=== PATIENT | male | born 1940 | race Caucasian/White ===

== ENCOUNTER → 2018-11-26 | Outpatient (CLI) | payer MEDICARE, BC ==
[2018-11-26 15:58] LABS: HCT 46.3 % (39.0-53.0); HGB 15.1 gm/dL (13.0-17.5); MCH 28.3 pg (25.0-35.0); MCHC 32.6 g/dL (31.0-37.0); MCV 86.7 fL (80.0-100.0); Mean Platelet Volume 7.2; Platelet Count 251 k/uL (150-450); RBC 5.34 m/uL (4.30-5.90); RDW 14.6 % (11.5-15.5); WBC 7.2 k/uL (3.8-10.6)
[2018-11-26 16:07] LABS: Prothrombin Time 10.9 sec (9.0-12.0)
[2018-11-26 16:11] LABS: Appearance,Urine Clear (Clear); Bilirubin,Urine Negative (Negative); Blood,Urine Negative (Negative); Color,Urine Yellow; Glucose,Urine (UA) Negative (Negative); Ketones,Urine Negative (Negative); Leukocyte Esterase,Urine Negative (Negative); Nitrite,Urine Negative (Negative); Protein,Urine Trace (Negative); Specific Gravity,Urine 1.029 (1.001-1.035); Urobilinogen,Urine <2.0 mg/dL (<2.0)
[2018-11-26 16:19] LABS: Potassium 4.3 mmol/L (3.5-5.1)
== END | disposition home or self-care (01) ==
LOC: LABPAT 15:26
PROVIDERS: ATTEND Orthopaedic Surgery
DX: Z01.812 Encounter for preprocedural laboratory examination (principal); M16.11 Unilateral primary osteoarthritis, right hip
CPT/HCPCS: 80051; 81003; 82565; 84520; 85027; 85610; 85730; 87070

== ENCOUNTER 2019-03-17 12:20 | Inpatient (IN) | payer MEDICARE, BC ==
[2019-04-30 09:01] VITALS: BMI 26.4
[2019-05-05] MEDS ORDERED: MELOXICAM 7.5 MG TAB PO ONE (05:00)
[2019-05-05] MEDS ORDERED: ACETAMINOPHEN TAB 500 MG TAB PO ONE (05:00)
[2019-05-05] MEDS ORDERED: GABAPENTIN 300 MG CAP PO ONE (05:00)
[2019-05-05] MEDS ORDERED: TRANEXAMIC ACID 1,000 MG in SODIUM CHLORIDE 0.9% 100 ML IVPB ONE ×4 (05:00)
[2019-05-05] MEDS ORDERED: ROPIVACAINE 246.25 MG, EPINEPHrine 0.5 MG, KETOROLAC 30 MG, cloNIDine HCL/PF 80 MCG, WA... MISCELLANE ONE ×5 (06:00)
[2019-05-05] MEDS ORDERED: MIDAZOLAM 2 MG/2 ML VIAL IV PRN (06:05)
[2019-05-05] MEDS ORDERED: HYDROmorphone 0.5 MG/0.5 ML SYRINGE IVP PRN ×4 (06:05→12:06)
[2019-05-05] MEDS ORDERED: DEXAMETHASONE SOD PHOSPHATE 10 MG/ML 1 ML VIAL IV ONE (06:05)
[2019-05-05] MEDS ORDERED: ONDANSETRON 4 MG/2 ML VIAL IVP ONE (06:05)
[2019-05-05] MEDS ORDERED: LIDOCAINE 1% 20 ML VIAL (10MG/ML) FOR IV START INTRADERMA PRN (06:05)
[2019-05-05] MEDS ORDERED: SCOPOLAMINE 1.5MG/72HR PATCH TRANSDERM ONE (06:05)
[2019-05-05] MEDS: LACTATED RINGERS 1,000 ML IV SCH (11:15)
[2019-05-05] MEDS ORDERED: PROPOFOL 10 MG/ML 20 ML VIAL IV ONE (12:01)
[2019-05-05] MEDS ORDERED: fentaNYL (PF) 50 MCG/ML 2 ML AMP ONE (12:01)
[2019-05-05] MEDS ORDERED: SODIUM CHLORIDE 0.9% IRRIG 1,000 ML BTL IRRIGATION ONE (12:01)
[2019-05-05] MEDS ORDERED: HEPARIN SODIUM,PORCINE 10,000 UNIT/ML 1 ML VIAL ONE (12:01)
[2019-05-05] MEDS ORDERED: PHENYLEPHRINE-0.9% NACL SYG 1 MG/10 ML SYRINGE ONE (12:01)
[2019-05-05] MEDS ORDERED: SODIUM CHLORIDE 0.9% 100 ML BAG ONE (12:01)
[2019-05-05] MEDS ORDERED: TRANEXAMIC ACID 1,000 MG/10 ML VIAL ONE (12:01)
[2019-05-05] MEDS ORDERED: MIDAZOLAM 2 MG/2 ML VIAL ONE (12:01)
[2019-05-05] MEDS ORDERED: NALOXONE 0.4 MG/ML 1 ML VIAL IV PRN (12:06)
[2019-05-05] MEDS ORDERED: ONDANSETRON 4 MG/2 ML VIAL IVP PRN (12:06)
[2019-05-05] MEDS ORDERED: HYDROcodone/APAP 5-325MG 1 EACH TAB PO PRN (12:06)
[2019-05-05] MEDS ORDERED: DIAZEPAM 5 MG TAB PO PRN (12:06)
[2019-05-05] MEDS ORDERED: MAGNESIUM HYDROXIDE 2,400 MG/10 ML CUP PO PRN (12:06)
[2019-05-05] MEDS ORDERED: ceFAZolin 3,000 MG in SODIUM CHLORIDE 0.9% IRRIGATIO 3,000 ML IRRIGATION ONE (12:07)
[2019-05-05] MEDS ORDERED: LACTATED RINGERS 1,000 ML IV ONE (13:02)
--- NOTE | 2019-05-05 13:44 | P.OP ---
Date of Procedure: 05/05/19 Preoperative Diagnosis: Polyethylene wear right total hip arthroplasty Postoperative Diagnosis: Polyethylene wear right total hip arthroplasty Procedure(s) Performed: Revision right total hip arthroplasty Implants: Liza Omnifit Crossfire 10 degree insert, 32 mm Liza Biolox Delta C-Taper Femoral Head, 32 mm +0 The articulation is ceramic on polyethylene. Anesthesia: spinal Surgeon: Koby Duron Gold Miner Blasting #1: Darlene Malagon Estimated Blood Loss (ml): 900 (376 mL returned with Cell Saver) Pathology: other (Cultures 2) Condition: stable Disposition: PACU Indications for Procedure: This is an 79-year-old gentleman has had a prior right total hip arthroplasty performed at another institution. He subsequently developed polyethylene wear and pain in his right total hip arthroplasty. After discussing the surgical and nonsurgical treatment options with him at length, he wishes to proceed with a revision of his right total hip arthroplasty with polyethylene exchange. Informed consent was obtained. Operative Findings: Operative findings are consistent with polyethylene wear of the right total hip arthroplasty. Description of Procedure: Patient was seen and evaluated in the preoperative area, consent was reviewed, and the surgical site was marked with a skin marker. Patient was then brought to the operating room and given prophylactic antibiotics intravenously. 1 g of Tranexamic acid was also given. A spinal anesthetic was administered by the anesthesia department. The patient was then placed on the operative table and placed in the lateral decubitus position with the bony prominences well-padded. The hip area was then prepped and draped in usual sterile fashion. A universal timeout was then performed, which confirmed the patient's name, surgical site, ALLERGIES, and procedure being performed. Next the incision site was located in the lateral aspect of the hip, centered at the tip of the greater trochanter.. The skin and subcutaneous tissues were sharply incised. A portion of his prior incision was utilized, with the scar being excised. Incision was carefully dissected down to the fascia. This fascia was then incised in line with the incision. Next, a Charnley retractor was then placed in the abductors were identified. The anterior one third of the abductors was released off the trochanter and one large sleeve. The anterior hip capsule was then exposed. The capsule was then opened. The proximal femur was then visualized. The hip was then gently dislocated. The femoral head was then removed from the trunnion of the femoral component. The femoral stem was then inspected, and found to be well fixed. Attention was then turned to the acetabulum. The acetabulum was exposed, and the scar tissue was excised sharply with a knife. After the acetabulum was exposed, the polyethylene component was found to be grossly loose. This was then easily removed with a hemostat. The acetabular component was then inspected and found to be well fixed. After adequate debridement of scar tissue, trial liner was then placed. Trial femoral head was then placed and hip was reduced. The leg lengths were checked and found to be equal. Hip was then taken through full range of motion, was stable throughout. Next, the hip was gently dislocated, and the trials were removed. Acetabulum was then reexposed. The appropriate acetabular liner was then opened and the final insert was impacted with the elevated rim located in the anterior superior quadrant. component locking was confirmed. The trunnion was then cleaned and dried and the femoral head was impacted on the trunnion. Hip was then reduced and the hip was then taken through range of motion and found to be stable throughout. Leg lengths were also checked, and found to be equal. The hip was then copiously irrigated with antibiotic solution with pulsatile lavage. The hip was then irrigated with Irrisept solution. The soft tissues were then injected with ropivacaine solution. A second dose of 1 g of Tranexamic acid was given. The abductors were then repaired with #5 Ethibond suture with drill holes to the bone. The fascia was closed with #2 strata fix suture. The subcutaneous tissue was closed with 3-0 Vicryl. The subcuticular tissue was closed with 30 strata fix suture. The skin was then closed with Dermabond tape. The patient was then transferred to the recovery room in stable condition. The Asst. SHERIDAN Mcdermott was required due to the complexity of surgery, and the need for skilled surgical supervisor for positioning, draping, exposure, retraction, and closure of the wound.and closure of the wound.
--- NOTE | 2019-05-05 14:39 | XR ---
EXAMINATION TYPE: XR Hip Limited RT DATE OF EXAM: 05/05/2019 CLINICAL HISTORY: Right hip pain and osteoarthritis. TECHNIQUE: Single AP portable view of right hip is obtained immediately postoperatively. COMPARISON: None. FINDINGS: Metallic hardware from total right hip arthroplasty is seen and appears satisfactory in ali gnment and position. There is evidence of recent surgery with subcutaneous gas noted laterally. IMPRESSION: Metallic hardware from right hip arthroplasty is satisfactory in position.
[2019-05-05] MEDS: SODIUM CHLORIDE 0.9% 1,000 ML IV SCH ×2 (15:20→15:49)
[2019-05-05] MEDS: HYDROcodone/APAP 5-325MG 1 EACH TAB PO PRN ×2 (17:34→23:25)
--- NOTE | 2019-05-05 18:35 | P.CONS ---
History of Present Illness - Reason for Consult Consult date: 05/05/19 Medical management. Requesting physician: Koby Duron - Chief Complaint Right hip pain post surgery. - History of Present Illness This 79-year-old male with past medical history significant for CAD status post PTCA and stent, status post CABG 3 vessels, PUD/GERD, DJD, chronic atrial fibrillation, diverticulosis, vitamin D and B12 deficiencies, hyperglycemia, peripheral neuropathy, basal cell carcinoma left forehead status post removal, emphysema on chest x-ray who had bilateral hip replacement in the past and right sided being about 20 years ago. Patient started having issues of pain with right hip replacement site and was evaluated by Dr. Duron and offered right hip revision which patient accepted. Patient underwent elective right hip revision today and sound hospitalist group was consulted postoperatively for medical management. Patient stated that he is very impressed with the spinal anesthesia and its recovery after the surgery and now other than mild to moderate right pain he is feeling wonderful. Patient denied chest pain, palpitation, headache, dizziness, diaphoresis, cough, sputum, fever, chills, nausea, vomiting, diarrhea and denies rest of the review system. Review of Systems 12 point review of system was essentially negative other than mentioned in HPI. Past Medical History Past Medical History: Atrial Fibrillation, Coronary Artery Disease (CAD), Cancer (Basal cell cancer of the forehead, removed.), GERD/Reflux, Neurologic Disorder (Bilateral lower extremity neuropathy.), Osteoarthritis (OA) Additional Past Medical History / Comment(s): hx. hiatal hernia, SOB w/exertion, supposed to have hip revision in November, ended up having CABG instead History of Any Multi-Drug Resistant Organisms: None Reported Past Surgical History: Cholecystectomy (1989.), Coronary Bypass/CABG, Heart Catheterization With Stent, Joint Replacement (Bilateral hip arthroplasties.) Additional Past Surgical History / Comment(s): kimberly hip replacement, triple bypass November 2018 Past Anesthesia/Blood Transfusion Reactions: Previous Problems w/ Anesthesia Additional Past Anesthesia/Blood Transfusion Reaction / Comm: some issues in [place] after original hip replacement-had some chest pain next day after surg. that thinks had something to do with anesthesia per pt. Date of Last Stent Placement:: 2012 Past Psychological History: No Psychological Hx Reported Smoking Status: Never smoker Past Alcohol Use History: None Reported Past Drug Use History: None Reported - Past Family History Brother(s) Family Medical History: Cancer Medications and Allergies Home Medications Medication Instructions Recorded Confirmed Type Aspirin [Adult Low Dose Aspirin EC] 81 mg PO DAILY 12/02/18 04/30/19 History Cholecalciferol (Vitamin D3) 1,000 unit PO DAILY 12/02/18 04/30/19 History [Vitamin D3] Cyanocobalamin (Vitamin B-12) 1,000 mcg PO DAILY 12/02/18 04/30/19 History [Vitamin B-12] Dronedarone [Multaq] 400 mg PO AC-BID 12/02/18 04/30/19 History Ubidecarenone [Co Q-10] 100 mg PO DAILY 12/02/18 04/30/19 History Famotidine [Pepcid] 40 mg PO DAILY 04/30/19 04/30/19 History Allergies Allergy/AdvReac Type Severity Reaction Status Date / Time No Known Allergies Allergy Verified 05/05/19 10:53 Physical Exam Vitals: Vital Signs Temp Pulse Resp BP BP Pulse Ox 05/05/19 16:53 70 116/65 05/05/19 16:37 72 130/78 05/05/19 16:21 73 131/73 05/05/19 16:07 69 133/75 05/05/19 15:51 69 156/82 05/05/19 15:36 65 145/70 05/05/19 15:22 97.7 F 69 16 138/77 96 05/05/19 14:43 68 18 128/68 96 05/05/19 14:28 65 16 134/64 98 05/05/19 14:13 73 16 134/77 97 05/05/19 13:58 82 17 134/77 97 05/05/19 11:05 97.6 F 76 16 127/70 98 Intake and Output 05/05/19 05/05/19 05/05/19 06:59 14:59 22:59 Intake Total 1751 180 Output Total 900 Balance 851 180 Intake: IV 1751 Oral 180 Output: Estimated Blood Loss 900 Other: Weight 86.5 kg - Constitutional General appearance: cooperative, no acute distress - EENT Eyes: EOMI, normal appearance ENT: hearing grossly normal, NA/AT - Neck Neck: no lymphadenopathy, normal ROM, no rigidity, no stridor, no thyromegaly - Respiratory Respiratory: bilateral: CTA, negative: diminished, dullness, rales, rhonchi, wheezing - Cardiovascular Rhythm: irregularly irregular Heart sounds: abnormal: S1 (Variable.), S2 (Variable.) Abnormal Heart Sounds: no systolic murmur, no diastolic murmur, no S3 Gallop, no S4 Gallop - Gastrointestinal General gastrointestinal: no distended, normal bowel sounds, no rigid, soft, no tenderness - Neurologic Neurologic: CNII-XII intact (No focal neuro deficits noted.) - Psychiatric Psychiatric: A&O x's 3, appropriate affect, intact judgment & insight Results Results: Hemoglobin 14, WBC 7.2, hematocrit 42.9, MCV 82.6, PT 10.9 and INR 1.0, sodium 142, potassium 4.1, chloride 110, bicarb 22, anion gap 10, BUN 23 and creatinine 1.42. Patient urine was negative for infection. These are the preoperative lab testing reports. Comments: Postoperative right hip x-ray reported as metallic hardware from right hip arthroplasty is satisfactory in position. Assessment and Plan (1) Atrial fibrillation Narrative/Plan: Controlled heart rate. Current Visit: Yes Status: Chronic Priority: Medium Code(s): I48.91 - UNSPECIFIED ATRIAL FIBRILLATION SNOMED Code(s): 37188191 (2) GERD (gastroesophageal reflux disease) Narrative/Plan: Stable on H2-Chad. Current Visit: Yes Status: Chronic Priority: Medium Code(s): K21.9 - GASTRO-ESOPHAGEAL REFLUX DISEASE WITHOUT ESOPHAGITIS SNOMED Code(s): 915701671 (3) CAD (coronary artery disease), autologous vein bypass graft Narrative/Plan: Currently stable post recent CABG. Current Visit: Yes Status: Chronic Priority: Medium Code(s): I25.810 - ATHEROSCLEROSIS OF CABG W/O ANGINA PECTORIS SNOMED Code(s): 876367012 (4) Basal cell carcinoma (BCC) in situ of skin Current Visit: Yes Status: Chronic Priority: Low Code(s): D04.9 - CARCINOMA IN SITU OF SKIN, UNSPECIFIED SNOMED Code(s): 79381567414688 (5) DJD (degenerative joint disease) Current Visit: Yes Status: Chronic Priority: High Code(s): M19.90 - UNSPECIFIED OSTEOARTHRITIS, UNSPECIFIED SITE SNOMED Code(s): 487143065 (6) Peripheral neuropathy Current Visit: Yes Status: Chronic Priority: Medium Code(s): G62.9 - POLYNEUROPATHY, UNSPECIFIED SNOMED Code(s): 169258732 Plan: Patient was seen and evaluated and his home medication were reviewed and will be continued. Patient was also present and per patient's verbal consent she was updated about patient's current condition and all questions were answered. Patient is waiting for his therapy to be started depending upon patient's respo nse to the therapy disposition will be recommended. Pain management per orthopedic service. Thanks Dr. Duron for allowing sound physician group in taking part of the medical management of your patient, we will continue to follow and monitor while he is in the hospital.
[2019-05-05] MEDS: DRONEDARONE 400 MG TAB PO SCH (20:32)
[2019-05-05] MEDS: ASPIRIN 325 MG TAB PO SCH (20:32)
[2019-05-05] MEDS ORDERED: SENNOSIDES-DOCUSATE SODIUM 1 EACH TAB PO SCH (21:00)
[2019-05-06] MEDS: LACTATED RINGERS 1,000 ML IV SCH (03:56)
[2019-05-06] MEDS: HYDROcodone/APAP 5-325MG 1 EACH TAB PO PRN ×2 (05:30→10:43)
[2019-05-06] MEDS: ASPIRIN 325 MG TAB PO SCH (07:06)
[2019-05-06 08:01] VITALS: BP 131/72; PULSE 75; RESP 16; TEMP 97.9
[2019-05-06] MEDS: DRONEDARONE 400 MG TAB PO SCH (08:10)
--- NOTE | 2019-05-06 08:33 | P.DS ---
Providers Date of admission: 05/05/19 10:21 Expected date of discharge: 05/06/19 Attending physician: Koby Duron Consults: 05/05/19 12:06 Consult Physician Routine Consulting Provider: Vonnie Ruff Consult Reason/Comments: medical management Do you want consulting provider notified?: Yes Primary care physician: Stated None - Discharge Diagnosis(es) (1) S/P revision of total hip Current Visit: Yes Status: Acute Hospital Course: This is a 79-year-old male who developed polyethylene wear after previous right total hip arthroplasty. The patient presents for evaluation. After discussion and consideration patient elects to proceed with revision right total hip arthroplasty. The patient is seen preoperatively by Dr. Duron and medically cleared for surgery by their primary care physician. Patient is admitted to [facility] on 05/05/2019 for revision right total hip arthroplasty. The procedures performed without complication or sequelae. The patient is doing well postoperatively. Labs and vital signs are stable on day of discharge. On day of discharge patient's hip incision is healing well. There is minimal erythema. There is no drainage noted at this time. There is minimal soft tissue swelling to the hip and thigh. Patient has full foot and ankle motion without difficulty or pain. Calf is soft and nontender to palpation. Neurovascular status to the right lower extremity is intact. Patient is discharged home in good condition. Opioid start talking form is reviewed and signed at patient bedside. Please see med rec for accurate list of home medications. Plan - Discharge Summary Discharge Rx Participant: Yes New Discharge Prescriptions: New Aspirin 325 mg PO BID #60 tab HYDROcodone/APAP 5-325MG [[place] 5-325] 1 - 2 tab PO Q6HR PRN #30 tab PRN Reason: Pain Sennosides [Senokot] 1 tab PO BID #60 tablet No Action Dronedarone [Multaq] 400 mg PO AC-BID Aspirin [Adult Low Dose Aspirin EC] 81 mg PO DAILY Ubidecarenone [Co Q-10] 100 mg PO DAILY Cholecalciferol (Vitamin D3) [Vitamin D3] 1,000 unit PO DAILY Cyanocobalamin (Vitamin B-12) [Vitamin B-12] 1,000 mcg PO DAILY Famotidine [Pepcid] 40 mg PO DAILY Discharge Medication List Aspirin [Adult Low Dose Aspirin EC] 81 mg PO DAILY 12/02/18 [History] Cholecalciferol (Vitamin D3) [Vitamin D3] 1,000 unit PO DAILY 12/02/18 [History] Cyanocobalamin (Vitamin B-12) [Vitamin B-12] 1,000 mcg PO DAILY 12/02/18 [History] Dronedarone [Multaq] 400 mg PO AC-BID 12/02/18 [History] Ubidecarenone [Co Q-10] 100 mg PO DAILY 12/02/18 [History] Famotidine [Pepcid] 40 mg PO DAILY 04/30/19 [History] Aspirin 325 mg PO BID #60 tab 05/06/19 [Rx] HYDROcodone/APAP 5-325MG [[place] 5-325] 1 - 2 tab PO Q6HR PRN #30 tab 05/06/19 [Rx] Sennosides [Senokot] 1 tab PO BID #60 tablet 05/06/19 [Rx] Follow up Appointment(s)/Referral(s): Koby Duron DO [Doctor of Osteopathic Medicine] - 2 Weeks Patient Instructions/Handouts: Pain Management After Surgery (DC), Revision Total Joint Arthroplasty (DC) Activity/Diet/Wound Care/Special Instructions: Weightbearing as tolerated with walker. Leave dressing intact. Dressing may be removed by home care nurse or by patient in 10 days. May shower with dressing on. Continue hip dislocation precautions. Continue use of abductor pillow for 6 weeks while sleeping. Recommend use of compression stockings daily for at least 2 weeks during the day to help prevent swelling and blood clots. May remove at night before sleeping. Please follow-up with [facility] in 2 weeks and call with any questions or concerns, . Discharge Disposition: HOME WITH HOME HEALTH SERVICES
[2019-05-06 08:48] LABS: Basophils % (A) 0 %; Eosinophils % (A) 0 %; HCT 37.8 % (39.0-53.0); HGB 12.4 gm/dL (13.0-17.5); Hypochromasia Slight; Lymphocytes # (A) 1.7 k/uL (1.0-4.8); Lymphocytes % (A) 14 %; MCH 27.3 pg (25.0-35.0); MCHC 32.8 g/dL (31.0-37.0); MCV 83.1 fL (80.0-100.0); Mean Platelet Volume 6.2; Monocytes # (A) 0.9 k/uL (0-1.0); Monocytes % (A) 8 %; Neutrophils # (A) 9.4 k/uL (1.3-7.7); Neutrophils % (A) 76 %; Platelet Count 241 k/uL (150-450); RBC 4.55 m/uL (4.30-5.90); RDW 15.4 % (11.5-15.5); WBC 12.3 k/uL (3.8-10.6)
[2019-05-06] MEDS ORDERED: NON FORMULARY DRUG (Aspirin [Adult Low Dose Aspirin Ec] 81 MG) PO SCH (09:00)
[2019-05-06] MEDS ORDERED: NON FORMULARY DRUG (Ubidecarenone [Co Q-10] 100 MG) PO SCH (09:00)
[2019-05-06] MEDS ORDERED: FAMOTIDINE 20 MG TAB PO SCH (09:00)
[2019-05-06] MEDS ORDERED: CHOLECALCIFEROL 1,000 UNIT TAB PO SCH (09:00)
[2019-05-06] MEDS ORDERED: CYANOCOBALAMIN 500 MCG TAB PO SCH (09:00)
[2019-05-06] MEDS ORDERED: MELOXICAM 7.5 MG TAB PO SCH (09:00)
--- NOTE | 2019-05-06 10:00 | P.PN ---
Subjective Progress Note Date: 05/06/19 Patient reports that he is feeling much better today he is walking better with the help of walker and his pain is well controlled with current medications. Patient stated that he is ready to be discharged home but he would require having home physical therapy as he may not be able to come 3 times a week to the facility for his rehab. Patient denies chest pain, palpitation, headache, dizziness, lightheadedness and denies rest of review of system. Objective - Vital Signs Vital signs: Vital Signs Temp 97.9 F 05/06/19 07:00 Pulse 75 05/06/19 07:00 Resp 16 05/06/19 07:00 BP 131/72 05/06/19 07:00 Pulse Ox 95 05/06/19 07:00 Intake & Output 05/05/19 05/06/19 05/06/19 18:59 06:59 18:59 Intake Total 1931 Output Total 900 Balance 1031 Weight 86.5 kg Intake: IV 1751 Oral 180 Output: Estimated Blood Loss 900 Other: Voiding Method Toilet Toilet # Voids 1 - Constitutional General appearance: Present: cooperative, no acute distress - EENT Eyes: Present: EOMI, normal appearance ENT: Present: hearing grossly normal, NA/AT - Neck Neck: Present: normal ROM. Absent: lymphadenopathy, rigidity, stridor, thyromegaly - Respiratory Respiratory: bilateral: CTA, negative: diminished, dullness, rales, rhonchi, wheezing - Cardiovascular Rhythm: irregularly irregular Heart sounds: abnormal: S1 (Variable.), S2 (Variable.) Abnormal Heart Sounds: Absent: systolic murmur, diastolic murmur, S3 Gallop, S4 Gallop - Gastrointestinal General gastrointestinal: Present: normal bowel sounds, soft. Absent: distended, rigid, tenderness - Neurologic Neurologic: Present: CNII-XII intact. Absent: focal deficits - Psychiatric Psychiatric: Present: A&O x's 3, appropriate affect, intact judgment & insight - Allied health notes Allied health notes reviewed: nursing - Labs CBC & Chem 7: 05/06/19 07:26 Labs: Abnormal Lab Results - Last 24 Hours (Table) 05/06/19 Range/Units 07:26 WBC 12.3 H (3.8-10.6) k/uL Hgb 12.4 L (13.0-17.5) gm/dL Hct 37.8 L (39.0-53.0) % Neutrophils # 9.4 H (1.3-7.7) k/uL Microbiology - Last 24 Hours (Table) 05/05/19 12:46 Gram Stain - Preliminary Hip - Right Wound Culture - Preliminary 05/05/19 12:46 Gram Stain - Preliminary Hip - Right Wound Culture - Preliminary 05/05/19 12:46 Anaerobic Culture - Preliminary Hip - Right 05/05/19 12:46 Anaerobic Culture - Preliminary Hip - Right Assessment and Plan (1) Atrial fibrillation Current Visit: Yes Status: Chronic Priority: Medium Code(s): I48.91 - UNSPECIFIED ATRIAL FIBRILLATION SNOMED Code(s): 50029527 (2) GERD (gastroesophageal reflux disease) Current Visit: Yes Status: Chronic Priority: Medium Code(s): K21.9 - GASTRO-ESOPHAGEAL REFLUX DISEASE WITHOUT ESOPHAGITIS SNOMED Code(s): 136610983 (3) CAD (coronary artery disease), autologous vein bypass graft Current Visit: Yes Status: Chronic Priority: Medium Code(s): I25.810 - ATHEROSCLEROSIS OF CABG W/O ANGINA PECTORIS SNOMED Code(s): 934196249 (4) Basal cell carcinoma (BCC) in situ of skin Current Visit: Yes Status: Chronic Priority: Low Code(s): D04.9 - C ARCINOMA IN SITU OF SKIN, UNSPECIFIED SNOMED Code(s): 69639769558930 (5) DJD (degenerative joint disease) Current Visit: Yes Status: Chronic Priority: High Code(s): M19.90 - UNSPECIFIED OSTEOARTHRITIS, UNSPECIFIED SITE SNOMED Code(s): 248280120 (6) Peripheral neuropathy Current Visit: Yes Status: Chronic Priority: Medium Code(s): G62.9 - POLYNEUROPATHY, UNSPECIFIED SNOMED Code(s): 297469781 Plan: Patient was seen and evaluated and is doing well after surgery and patient is being discharged with home therapy and home care. Patient was also present in the room and she was also updated per patient's verbal consent and all questions were answered. Pain management per orthopedic service, I will give Senokot-S 2 tablets at bedtime to control for his constipation which he can develop pain medications. Thanks Dr. Duron for allowing [facility] physician group in taking part of the medical management of your patient, we will sign off today as he is being discharged home.
--- NOTE | 2019-05-08 02:16 | CDI ---
Documentation Clarification Form Date: 05/08/19 From: [employer] Phone: If you have a question about this query, please contact Faby Wagner, Business Asst at [phone] between 8am and 5pm. Admit Date: 05/05/19 Discharge Date: 05/06/19 Patient Name: Kody Rodriguez Visit Number: [id number] ATTENTION: The Clinical Documentation Specialists (CDI) and [facility] Coding Staff appreciate your assistance in clarifying documentation. Please respond to the clarification below the line at the bottom and electronically sign. The CDI & [facility] Coding staff will review the response and follow-up if needed. Please note: Queries are made part of the Legal Health Record. If you have any questions, please contact the author of this message via ITS. Dear Koby Luna, This is an 79-year-old gentleman has had a prior right total hip arthroplasty performed at another institution.He subsequently developed polyethylene wear and pain in his right total hip arthroplasty. History/Risk Factors:Chronic atrial fibrillation, Basal ell carcinoma,polyneuropathy. Lab findings: Pre operative Hgb 14, hematocrit 42.9 Post-Operative :HCT(%) 37.8L HGB(gm/dL)12.4L Estimated Blood loss: 900ml Treatment: 900 (376 mL returned with Cell Saver) In your professional opinion, can you please clarify the diagnosis? Anemia due to acute blood loss Other, please specify Unable to determine Acute Blood Loss MTDD
== END 2019-05-06 11:06 | disposition home health service (06) | DRG 467 ==
LOC: EDSTATUS 05-05 09:15 → 2ORMAIN 05-05 10:21 → 4SSUR 05-05 14:50
PROVIDERS: ADMIT Orthopaedic Surgery; ATTEND Orthopaedic Surgery
PROC: 30233N1 Transfusion of Nonautologous Red Blood Cells into Peripheral Vein, Percutaneous Approach (ICD-10-PCS; principal; 2019-05-05 11:25)
PROC: 0SPR0JZ Removal of Synthetic Substitute from Right Hip Joint, Femoral Surface, Open Approach (ICD-10-PCS; principal; 2019-05-05 11:25)
PROC: 0SRR03Z Replacement of Right Hip Joint, Femoral Surface with Ceramic Synthetic Substitute, Open Approach (ICD-10-PCS; principal; 2019-05-05 11:25)
PROC: 0SP909Z Removal of Liner from Right Hip Joint, Open Approach (ICD-10-PCS; principal; 2019-05-05 11:25)
PROC: 0SUA09Z Supplement Right Hip Joint, Acetabular Surface with Liner, Open Approach (ICD-10-PCS; principal; 2019-05-05 11:25)
DX: T84.060A Wear of articular bearing surface of internal prosthetic right hip joint, initial encounter (principal); I48.20 Chronic atrial fibrillation, unspecified; D62 Acute posthemorrhagic anemia; K21.9 Gastro-esophageal reflux disease without esophagitis; I25.10 Atherosclerotic heart disease of native coronary artery without angina pectoris; G62.9 Polyneuropathy, unspecified; J43.9 Emphysema, unspecified; Z96.642 Presence of left artificial hip joint; F17.200 Nicotine dependence, unspecified, uncomplicated; E53.8 Deficiency of other specified B group vitamins; E55.9 Vitamin D deficiency, unspecified; K59.09 Other constipation; E78.49 Other hyperlipidemia; N18.3 Chronic kidney disease, stage 3 (moderate); I12.9 Hypertensive chronic kidney disease with stage 1 through stage 4 chronic kidney disease, or unspecified chronic kidney disease; Z95.5 Presence of coronary angioplasty implant and graft; Z79.82 Long term (current) use of aspirin; Z90.49 Acquired absence of other specified parts of digestive tract; Z95.1 Presence of aortocoronary bypass graft; Z80.9 Family history of malignant neoplasm, unspecified; Z87.11 Personal history of peptic ulcer disease; Z97.3 Presence of spectacles and contact lenses; Z87.19 Personal history of other diseases of the digestive system; Z98.890 Other specified postprocedural states
CPT/HCPCS: 73501; 85025; 86850; 86891; 86900; 86901; 87070; 87075; 87205

== ENCOUNTER → 2019-04-23 | Outpatient (CLI) | payer MEDICARE, BC ==
[2019-04-23 14:36] LABS: Appearance,Urine Clear (Clear); Bilirubin,Urine Negative (Negative); Blood,Urine Negative (Negative); Color,Urine Yellow; Glucose,Urine (UA) Negative (Negative); HCT 42.9 % (39.0-53.0); Ketones,Urine Negative (Negative); Leukocyte Esterase,Urine Negative (Negative); MCH 26.9 pg (25.0-35.0); MCHC 32.6 g/dL (31.0-37.0); MCV 82.6 fL (80.0-100.0); Mean Platelet Volume 5.9; Nitrite,Urine Negative (Negative); PH, Urine 5.5 (5.0-8.0); Platelet Count 274 k/uL (150-450); Protein,Urine Trace (Negative); RBC 5.19 m/uL (4.30-5.90); RDW 15.2 % (11.5-15.5); Specific Gravity,Urine 1.027 (1.001-1.035); Urobilinogen,Urine <2.0 mg/dL (<2.0); WBC 7.2 k/uL (3.8-10.6)
[2019-04-23 14:44] LABS: Partial Thromboplastin Time 25.1 sec (22.0-30.0); Prothrombin Time 10.9 sec (9.0-12.0)
[2019-04-23 14:45] LABS: Albumin 4.2 g/dL (3.5-5.0); Calcium 9.2 mg/dL (8.4-10.2); Potassium 4.1 mmol/L (3.5-5.1); Total Bilirubin 0.4 mg/dL (0.2-1.3); Total Protein 7.3 g/dL (6.3-8.2)
== END | disposition home or self-care (01) ==
LOC: LABPAT 13:59
PROVIDERS: ATTEND Orthopaedic Surgery
DX: Z01.812 Encounter for preprocedural laboratory examination (principal); Z01.818 Encounter for other preprocedural examination; M16.11 Unilateral primary osteoarthritis, right hip
CPT/HCPCS: 80053; 81003; 85027; 85610; 85730; 87070

== ENCOUNTER 2019-06-12 13:30 | Emergency (ER) | payer MEDICARE, BC ==
[2019-06-12 13:46] VITALS: TEMP 98.1
[2019-06-12 13:46] LABS: Glucose,Whole Blood 105 mg/dL (75-99)
[2019-06-12] MEDS ORDERED: HYDROmorphone 1 MG/ML 1 ML SYRINGE IVP STA (14:05)
--- NOTE | 2019-06-12 14:08 | ED ---
General Adult HPI - General Chief complaint: Extremity Injury, Lower Stated complaint: Hip dislocation Time Seen by Provider: 06/12/19 13:49 Source: patient, family, EMS, RN notes reviewed Mode of arrival: EMS Limitations: no limitations - History of Present Illness Initial comments: Patient is a pleasant 79-year-old male presenting to the emergency Department with complaints of right hip discomfort. Onset of symptoms was just prior to arrival. Patient was sitting down and felt a sudden pop of his right hip. Patient did have similar symptoms 10 days ago associated with hip dislocation. Patient did have surgery done just a month ago which was a revision of right hip. Patient denies any other area of injury or concern. Patient states discomfort is 5/10 but does increase with movement. - Related Data Home Medications Medication Instructions Recorded Confirmed Aspirin [Adult Low Dose Aspirin EC] 81 mg PO DAILY 12/02/18 04/30/19 Cholecalciferol (Vitamin D3) 1,000 unit PO DAILY 12/02/18 04/30/19 [Vitamin D3] Cyanocobalamin (Vitamin B-12) 1,000 mcg PO DAILY 12/02/18 04/30/19 [Vitamin B-12] Dronedarone [Multaq] 400 mg PO AC-BID 12/02/18 04/30/19 Ubidecarenone [Co Q-10] 100 mg PO DAILY 12/02/18 04/30/19 Famotidine [Pepcid] 40 mg PO DAILY 04/30/19 04/30/19 Previous Rx's Medication Instructions Recorded Aspirin 325 mg PO BID #60 tab 05/06/19 HYDROcodone/APAP 5-325MG [[place] 1 - 2 tab PO Q6HR PRN #30 tab 05/06/19 5-325] Sennosides [Senokot] 1 tab PO BID #60 tablet 05/06/19 Sennosides-Docusate Sodium 2 each PO HS 30 Days #60 tab 05/06/19 [Senokot-S] Allergies Allergy/AdvReac Type Severity Reaction Status Date / Time No Known Allergies Allergy Verified 05/05/19 10:53 Review of Systems ROS Statement: Those systems with pertinent positive or pertinent negative responses have been documented in the HPI. ROS Other: All systems not noted in ROS Statement are negative. Constitutional: Denies: fever Eyes: Denies: eye pain ENT: Denies: ear pain Respiratory: Denies: cough Cardiovascular: Denies: chest pain Endocrine: Denies: fatigue Gastrointestinal: Denies: abdominal pain Genitourinary: Denies: dysuria Musculoskeletal: Reports: as per HPI, arthralgia Skin: Denies: rash Neurological: Denies: weakness Past Medical History Past Medical History: Atrial Fibrillation, Coronary Artery Disease (CAD), Cancer, GERD/Reflux, Neurologic Disorder, Osteoarthritis (OA) Additional Past Medical History / Comment(s): hx. hiatal hernia, SOB w/exertion, supposed to have hip revision in November, ended up having CABG instead History of Any Multi-Drug Resistant Organisms: None Reported Past Surgical History: Cholecystectomy, Coronary Bypass/CABG, Heart Catheterization With Stent, Joint Replacement Additional Past Surgical History / Comment(s): [place]imberly hip replacement, triple bypass November 2018 Past Anesthesia/Blood Transfusion Reactions: Previous Problems w/ Anesthesia Additional Past Anesthesia/Blood Transfusion Reaction / Comment(s): some issues in [place] after original hip replacement-had some chest pain next day after surg. that thinks had something to do with anesthesia per pt. Date of Last Stent Placement:: 2012 Past Psychological History: No Psychological Hx Reported Smoking Status: Never smoker Past Alcohol Use History: None Reported Past Drug Use History: None Reported - Past Family History Brother(s) Family Medical History: Cancer General Exam Limitations: no limitations General appearance: alert, in no apparent distress Head exam: Present: normocephalic Neck exam: Present: normal inspection. Absent: tenderness Respiratory exam: Present: normal lung sounds bilaterally Cardiovascular Exam: Present: regular rate, normal rhythm Expanded Peripheral pulses: 2+: Posterior Tibialis (R), Posterior Tibialis (L), Dorsalis Pedis (R), Dorsalis Pedis (L) GI/Abdominal exam: Present: soft. Absent: distended, tenderness Extremities exam: Present: tenderness (Right lateral hip), other (Right leg is shortened and internally rotated. Distally extremity is neurovascularly intact.) Neurological exam: Present: alert. Absent: motor sensory deficit Psychiatric exam: Present: normal affect, normal mood Skin exam: Present: normal color Course Vital Signs 06/12/19 06/12/19 06/12/19 13:42 14:33 15:29 Temperature 98.1 F Pulse Rate 79 77 87 Respiratory 18 16 16 Rate Blood Pressure 135/78 148/83 138/65 O2 Sat by Pulse 99 99 97 Oximetry 06/12/19 15:34 Temperature Pulse Rate 87 Respiratory 16 Rate Blood Pressure 142/114 O2 Sat by Pulse 97 Oximetry - Reevaluation(s) Reevaluation #1: 06/12/19 16:05 Patient reevaluated and updated Procedures - Orthopedic Joint Reduction Joint #1 Consent Obtained: verbal consent, written consent Side: right Joint Reduction Location: hip Analgesia: procedural sedation Shoulder Technique Used (if applicable): other (The [place] technique) Post-Reduction Neuro Exam: intact Post-Reduction Vascular Exam: intact Post Reduction X-Ray Obtained: Yes Post Reduction X-Ray Results: reduced Patient Tolerated Procedure: well, no complications - Procedural Sedation Procedural Sedation Start Time: 15:29 Procedural Sedation Stop Time: 15:54 Indications: fracture/dislocation reduction ASA Class: II Mallampati Airway Score: 3 Preparation: biomedical engineer applied, pulse oximeter, capnometry used IV Etomidate Dose (mgs): 20 Complications: none Patient Tolerated Procedure: well, no complications Medical Decision Making - Medical Decision Making Case was discussed twice with practitioner Srikanth working with Dr. Duron who did recommend ER reduction. Following reduction he does request patient discharged with follow-up beginning of the week and abductor pillow. - Lab Data Lab Results 06/12/19 Range/Units 13:44 POC Glucose (mg/dL) 105 H (75-99) mg/dL POC Glu Interactive Media Specialist ID - Radiology Data Radiology results: image reviewed (Right hip and pelvis x-rays show superior right hip dislocation.) Disposition Clinical Impression: Hip dislocation, right Disposition: HOME SELF-CARE Condition: Stable Instructions (If sedation given, give patient instructions): Moderate Sedation (ED), Hip Dislocation (ED) Additional Instructions: Use abductor pillow at all times while in bed. Please follow-up with Dr. Duron Saturday or Saturday. Use leg brace at all times. Return for increased hip pain, weakness, worsening symptoms or other concerns. Is patient prescribed a controlled substance at d/c from ED?: No Referrals: Efren Monk MD [Primary Care Provider] - 1-2 days Koby Duron DO [Doctor of Osteopathic Medicine] - 1-2 days Time of Disposition: 16:05
[2019-06-12 14:34] VITALS: RESP 16
--- NOTE | 2019-06-12 14:41 | XR ---
EXAMINATION TYPE: XR Hip RT and AP Pelvis DATE OF EXAM: 06/12/2019 COMPARISON: Limited right hip radiograph dated 05/05/2019 HISTORY: Recent right hip arthroplasty. Right hip pain TECHNIQUE: A single AP view of the pelvis is obtained. Two views of the right hip are obtained. FINDINGS: There is no acute fracture evident in the pelvis. There is a superior posterior right hip arthroplasty dislocation. The femoral component contacts the superior acetabulum. Left hip arthroplas ty alignment is maintained. Diffuse osseous demineralization is seen. Moderate degenerative changes o f the lumbosacral junction. IMPRESSION: Right hip arthroplasty dislocation as described above.
[2019-06-12] MEDS ORDERED: ETOMIDATE 2 MG/ML 10 ML VIAL IVP STA (15:28)
--- NOTE | 2019-06-12 15:50 | XR ---
EXAMINATION TYPE: XR Hip Limited RT DATE OF EXAM: 06/12/2019 CLINICAL HISTORY: Right hip pain and dislocation TECHNIQUE: Single AP view of the right hip was obtained. COMPARISON: X-ray of the same date FINDINGS/IMPRESSION: Persistent superior dislocation on the single frontal view.
--- NOTE | 2019-06-12 15:51 | XR ---
EXAMINATION TYPE: XR Hip Limited RT DATE OF EXAM: 06/12/2019 CLINICAL HISTORY: Right hip pain and dislocation. TECHNIQUE: Single AP of the right hip. COMPARISON: Hip x-rays earlier the same date. FINDINGS: There is successful reduction and alignment of the right hip arthroplasty on this single fr ontal view. No acute fracture seen of the quileute ulnar arthroplasty. IMPRESSION: Successful right hip arthroplasty reduction.
[2019-06-12 16:55] VITALS: BP 145/88; PULSE 87
== END 2019-06-12 17:16 | disposition home or self-care (01) ==
LOC: EC 13:30
DX: T84.020A Dislocation of internal right hip prosthesis, initial encounter (principal); I25.10 Atherosclerotic heart disease of native coronary artery without angina pectoris; I48.91 Unspecified atrial fibrillation; K21.9 Gastro-esophageal reflux disease without esophagitis; M19.90 Unspecified osteoarthritis, unspecified site; Z79.82 Long term (current) use of aspirin; Z79.899 Other long term (current) drug therapy; Z95.1 Presence of aortocoronary bypass graft; Z95.5 Presence of coronary angioplasty implant and graft; Z96.643 Presence of artificial hip joint, bilateral; Y79.2 Prosthetic and other implants, materials and accessory orthopedic devices associated with adverse incidents
CPT/HCPCS: 99284 ×2; 27265 ×2; 99152 ×2; 99153 ×2; 96374 ×2; 36415; 73501; 73502; J1170